=== PATIENT | male | born 1970 | race Caucasian/White ===

== ENCOUNTER 2017-09-14 12:55 | Inpatient (IN) | payer OTHER ==
[2017-09-14] VITALS (12 sets, daily range): BP systolic 99–159; BP diastolic 48–89; PULSE 92–105; RESP 11–22; TEMP 97–99.9; O2SAT 90–100
--- NOTE | 2017-09-14 15:14 | RADRPT ---
EXAM DATE/TIME: 09/14/2017 15:03 [facility] COMPARISON: No previous studies available for comparison. INDICATIONS : Organ donor. MEDICAL HISTORY : None. SURGICAL HISTORY : None. ENCOUNTER: Initial ACUITY: 1 day PAIN SCORE: Non-responsive. LOCATION: Bilateral chest FINDINGS: ETT is at the level of the clavicles. NGT in the stomach. Right subclavian central line with tip in t he central SVC. There is a right-sided chest tube in place. Trace right-sided pneumothorax. Mild airs pace disease in the left lower lung zone. Multiple right-sided rib fractures. CONCLUSION: 1. Tubes and lines, as above. 2. Right-sided chest tube in place with trace right pneumothorax. 3. Mild airspace disease in the left lower lung zone consistent with atelectasis or pulmonary contusi on. Marty Leal MD on September 14, 2017 at 15:11 Board Certified Radiologist. This report was verified electronically.
[2017-09-14 15:28] LABS: BLOOD, URINE NEG (NEG); GLUCOSE,URINE NEG (NEG); KETONE, URINE NEG (NEG); MUCUS URINE FEW /lpf (OCC); NITRITE,URINE NEG (NEG); PH, URINE 5.5 (5.0-8.5); SQUAMOUS EPITHELIAL CELL URINE <1 /hpf (0-5); URINE COLOR YELLOW (YELLW/STRAW)
[2017-09-14 15:39] LABS: AUTOMATED NEUTROPHIL # 7.6 TH/MM3 (1.8-7.7); BASOPHIL % 0.4 % (0.0-2.0); EOSINOPHIL # 0.1 TH/MM3 (0-0.4); EOSINOPHIL % 0.8 % (0.0-4.0); LYMPH % 15.3 % (9.0-44.0); LYMPHOCYTE # 1.5 TH/MM3 (1.0-4.8); MEAN CELL VOLUME 86.7 FL (80.0-100.0); MEAN CORPUSCULAR HEMOGLOBIN 29.7 PG (27.0-34.0); MEAN CORPUSCULAR HGB CONC 34.3 % (32.0-36.0); MONO % 5.2 % (0.0-8.0); NEUT % 78.3 % (16.0-70.0); PLATELET COUNT 75 TH/MM3 (150-450); RED BLOOD COUNT 2.31 MIL/MM3 (4.50-5.90); RED CELL DISTRIBUTION WIDTH 14.9 % (11.6-17.2); WHITE BLOOD COUNT 9.7 TH/MM3 (4.0-11.0)
[2017-09-14 15:48] LABS: AMYLASE 25 U/L (25-115); ANION GAP 8 MEQ/L (5-15); AST (GOT) 86 U/L (15-37); BICARBONATE 25.2 MEQ/L (21.0-32.0); BLOOD UREA NITROGEN 14 MG/DL (7-18); CHLORIDE 122 MEQ/L (98-107); GAMMA GT 81 U/L (15-85); GLOMERULAR FILTRATION RATE 143 ML/MIN (>89); HEMO FLAGS AUTO DIFF; MAGNESIUM 2.2 MG/DL (1.5-2.5); POTASSIUM 3.2 MEQ/L (3.5-5.1); SODIUM (NA) 155 MEQ/L (136-145)
--- NOTE | 2017-09-14 15:49 | PD.PROCEDR ---
Procedure Note Procedure Procedure: Diagnostic Fiberoptic Bronchoscopy Diagnosis: Traumatic brain injury with herniation Indications: Need for perioperative planning for possible organ donation Consent: Obtained Anesthesia: none Description of the Procedure: The patient was mechanically ventilated. The patient was placed on 100% FIO2 and a volume control mode of ventilation. The fiberoptic bronchoscopy was inserted via 7.5 oral endotracheal tube. The trachea, right and left mainstem bronchi, and sub-segmental bronchi were evaluated. The endobronchial anatomy was normal. Findings: Minimal thick hdz secretions in the proximal left or right airways which clear easily upon suctioning. Normal anatomy. No lesions. No trauma. BAL samples: Right lower lobe, left lower lobe The patient tolerated the procedure well with no hemodynamic instability or hypoxia. There were no immediate complications noted. At the conclusion of the procedure, the patient was placed back on their pre-procedure ventilatory settings. There was minimal EBL. I personally performed the procedure. Everton Patel MD Sep 14, 2017 15:49
[2017-09-14] MEDS: 0.0225% SODIUM CHLORIDE, POTASSIUM CHLORIDE 20 MEQ IV SCH ×3 (15:50)
[2017-09-14] MEDS: CLINDAMYCIN INJ 900 MG in SODIUM CHLORIDE 0.9% INJ 50 ML IV SCH ×2 (15:50→21:07)
[2017-09-14 15:51] LABS: ALKALINE PHOSPHATASE 64 U/L (45-117); ALT (GPT) 41 U/L (12-78); CREATINE KINASE 527 U/L (39-308); INDIRECT BILIRUBIN 0.1 MG/DL (0.0-0.8); TOTAL BILIRUBIN ADULT 0.3 MG/DL (0.2-1.0)
[2017-09-14] MEDS ORDERED: RESP: ACETYLCYSTEINE 20% 30 ML NEB NEB SCH (16:00)
[2017-09-14] MEDS ORDERED: ICU - D/C ICU ELECTROLYTE ORDERS PRN (16:00)
[2017-09-14] MEDS ORDERED: methylPREDNISolone SO SUCC INJ 2,000 MG in SODIUM CHLOR 0.9% 250 ML INJ 250 ML IV ONE (16:00)
[2017-09-14] MEDS ORDERED: LEVOTHYROXINE SODIUM 100 MCG VIAL IV PUSH ONE (16:00)
[2017-09-14] MEDS ORDERED: ICU - POTASSIUM CHLORIDE/AQUEOUS SOLN 40 MEQ/100 ML IVPB IV PRN (16:00)
[2017-09-14] MEDS ORDERED: POTASSIUM CHLORIDE 25 MEQ EFFERVESCENT TAB PO PRN (16:00)
[2017-09-14] MEDS ORDERED: ICU - MAGNESIUM SULFATE 2 GM/NS 100 ML IV PRN ×2 (16:00)
[2017-09-14] MEDS ORDERED: DEXTROSE 50% IN WATER 50 ML VIAL(D50) IV PUSH SCH (16:00)
[2017-09-14] MEDS ORDERED: LEVOTHYROXINE 400 MCG/NS 500 ML IV SCH ×2 (16:00)
[2017-09-14] MEDS ORDERED: ICU - SODIUM PHOSPHATE 30 MMOL/NS 250 ML IV PRN ×2 (16:00)
[2017-09-14] MEDS ORDERED: ICU - MAGNESIUM OXIDE 400 MG TAB PO PRN (16:00)
[2017-09-14] MEDS ORDERED: DOPamine INJ 400 MG in SODIUM CHLOR 0.9% 250 ML INJ 250 ML IV PRN (16:00)
[2017-09-14] MEDS ORDERED: VASOPRESSIN 80 U/NS 100 ML Titrate per Translife Protocol IV PRN ×2 (16:00)
[2017-09-14] MEDS ORDERED: ICU - MAGNESIUM SULFATE 4 GM/NS 100 ML IV PRN ×2 (16:00)
[2017-09-14] MEDS ORDERED: INSULIN HUMAN REGULAR 1,000 UNITS/10 ML VIAL IV PUSH SCH (16:00)
[2017-09-14] MEDS ORDERED: ICU - POTASSIUM PHOSPHATE MONOBASIC 500 MG TAB PO PRN (16:00)
[2017-09-14] MEDS ORDERED: [UNRECOGNIZED DRUG - OTHER] OG-TUBE PRN (16:00)
[2017-09-14] MEDS ORDERED: ICU - POTASSIUM PHOSPHATE 30 MMOL/NS 250 ML IV PRN ×2 (16:00)
[2017-09-14] MEDS ORDERED: ICU - CALL ORDERING PHYSICIAN PRN (16:00)
[2017-09-14 16:05] LABS: CKMB 6.6 NG/ML (0.5-3.6)
[2017-09-14] MEDS: RESP: ALBUTEROL 2.5 MG/3 ML NEB (SCH) NEB (16:08)
[2017-09-14] MEDS: RESP: ACETYLCYSTEINE 20% 4 ML NEB NEB SCH (16:09)
[2017-09-14 16:11] LABS: PLATELET ESTIMATE SMEAR LOW (NORMAL); PLATELET MORPHOLOGY NORMAL (NORMAL); SCAN/DIFF AUTO DIFF CONFIRMED
[2017-09-14 16:18] LABS: APTT (PATIENT) 24.8 SEC (24.3-30.1); INTERNATIONAL NORMALIZED RATIO 0.9 RATIO; PROTHROMBIN TIME - PATIENT 10.1 SEC (9.8-11.6)
[2017-09-14 16:21] LABS: BLOOD GAS BASE EXCESS -0.1 mmol/L (-2-2); BLOOD GAS CARBOXYHEMOGLOBIN 1.2 % (0-4); BLOOD GAS HCO3 24 mmol/L (22-26); BLOOD GAS METHEMOGLOBIN 0.8 % (0-2); BLOOD GAS O2 HGB SATURATION 98 % (90-100); BLOOD GAS OXYGEN CONTENT 9.3 Vol % (12.0-20.0); BLOOD GAS PCO2 42 mmHg (38-42); BLOOD GAS PO2 235 mmHG (61-120); BLOOD GAS TOTAL HGB 6.3 G/DL (12.0-16.0); CRITICAL VALUE YES; DRAW SITE ART LINE; FIO2 100 %; NUMBER OF ARTERIAL PUNCTURES 0; OXYGEN DEVICE VENTILATOR; STAT YES; TEMP CORR TO 98.6; ULNAR PULSE PRESENT; VENT SETTINGS PRVC/22/550/1.0/+8
[2017-09-14 16:28] LABS: HEMOGLOBIN A1a 1.7 %; HEMOGLOBIN A1b 0.8 %; HEMOGLOBIN Ao 85.5 %; HEMOGLOBIN F 0.8 %; HEMOGLOBIN LA1C 2.1 %; HEMOGLOBIN P3 3.6 %
[2017-09-14] MEDS: CEFEPIME 1000 MG/NS 100 ML IV SCH ×4 (16:44→22:05)
--- NOTE | 2017-09-14 17:03 | ECHRPT ---
Indication: REGARDING SUITIBILITY FOR HEART DONATION CONCLUSIONS The left ventricular systolic function is normal with an estimated ejection fraction in the range of 55-60%. Trace mitral valve regurgitation. There is trace tricuspid valve regurgitation. BP: 112 / 55 HR: Rhythm: Sinus MEASUREMENTS (Male / Female) Normal Values Technical Quality:Fair 2D ECHO LV Diastolic Diameter PLAX 5.0 cm 4.2 - 5.9 / 3.9 - 5.3 cm LV Systolic Diameter PLAX 3.5 cm IVS Diastolic Thickness 0.8 cm 0.6 - 1.0 / 0.6 - 0.9 cm LVPW Diastolic Thickness 0.7 cm 0.6 - 1.0 / 0.6 - 0.9 cm LV Relative Wall Thickness 0.3 LVOT Diameter 1.6 cm Aortic Root Diameter 2.1 cm LA Systolic Diameter LX 2.4 cm 3.0 - 4.0 / 2.7 - 3.8 cm DOPPLER AV Peak Velocity 145.0 cm/s AV Peak Gradient 8.4 mmHg AV Mean Gradient 5.0 mmHg AV Velocity Time Integral 17.1 cm LVOT Peak Velocity 120.0 cm/s LVOT Peak Gradient 5.8 mmHg LVOT Velocity Time Integral 17.2 cm AV Area Cont Eq vti 2.0 cm AV Area Cont Eq pk 1.7 cm Mitral E Point Velocity 82.9 cm/s Mitral A Point Velocity 79.0 cm/s Mitral E to A Ratio 1.0 LV E' Lateral Velocity 8.2 cm/s Mitral E to LV E' Lateral Ratio 10.1 LV E' Septal Velocity 9.8 cm/s Mitral E to LV E' Septal Ratio 8.4 PV Peak Velocity 66.2 cm/s PV Peak Gradient 1.8 mmHg FINDINGS LEFT VENTRICLE Normal left ventricular size. Wall thickness is normal. The left ventricular systolic function is normal with an estimated ejection fraction in the range of 55-60%. Probably normal diastolic function. RIGHT VENTRICLE The right ventricular size is normal. LEFT ATRIUM The left atrial size is normal. RIGHT ATRIUM The right atrial size is normal. ATRIAL SEPTUM Normal atrial septal thickness. AORTA The aortic root and proximal ascending aorta are normal in size on limited imaging. MITRAL VALVE Trace mitral valve regurgitation. Structurally normal mitral valve. No mitral valve stenosis. AORTIC VALVE Trileaflet aortic valve. No aortic valve stenosis or regurgitation. TRICUSPID VALVE There is trace tricuspid valve regurgitation. Structurally normal tricuspid valve. No tricuspid valve stenosis. PULMONARY VALVE The pulmonary valve is not well visualized. PERICARDIUM No pericardial effusion. Dakota Guerra DO (Electronically Signed) Final Date:14 September 2017 17:02
--- NOTE | 2017-09-14 18:38 | CATHPROC ---
[facility] Report Study Information Study Number Admission Scheduled Start Study Start [id number] Sep 14 2017 12:55PM 09/14/2017 Sep 14 2017 5:21PM [facility] Cardiac Catheterization Admit Source Facility Department Emergency department [facility]ck Cutter Physician and Clinical Staff Initial Dakota Cabrera Veterinarian Gabriel Villagomez RN Veterinarian Susan Dorman BSN Recorder Alexandra, Paola,RT(R) (BS) Scrub Nona Cramer,EPIC PROFESSIONAL TECH2 Procedures Performed Procedure Location (Site) Vessel Name Coronary Angiograms LCA Left Coronary Coronary Angiograms RCA Right Coronary Equipment Time Flipping Machine Operator Description Size Mfg Part Number Used/Scraped [id number] 17:31 [employer] SWAN GHAZALA CATHETER FR 7 Used *[id number] TRANSDUCER, TRUWAVE [id number] 17:31 [employer] * Used W/STOCKCOCK *[id number] TRANSDUCER, TRUWAVE [id number] 17:31 LYON DE [place] [employer] * Used W/STOCKCOCK *[id number] INTRODUCER SET, 17:49 [employer] FR 5 [id number] *[id number] Used MICROPUNCTURE, STIFFENED [id number] *[id number] 17:31 [employer] IND[employer]RIES PACK, CCL CUSTOM * Used *[id number] 18:06 MEDTRONIC JL 4.0 DXTERITY CATHETER FR 5 [id number] Used 18:02 MEDTR[employer]IC JR 4.0 DXTERITY CATHETER FR 5 [id number] Used 17:31 [employer] MEDICAL SHEATH, FR5.5 PRELUDE 11CM FR 5 [id number] Used [id number] 17:31 [employer] MEDICAL WIRE, 3MMJ .035 180CM 180CM Used *[id number] 17:31 NAMIC MANIFOLD, 2 PORT * Used *[id number] 17:31 NAMIC MANIFOLD, 4 PORT * Used *[id number] 17:31 [employer]ED OMNIPAQUE, 350 MG, 150ML 150ML [id number] Used [id number] 17:31 [employer] MEDICAL BLANKET,WARM AIR CCL * Used *[id number] 17:31 TERUMO MEDICAL SHEATH, FR7 TERUMO (10CM) FR 7 Used *[id number] History: Allergies Allergy Reaction No Allergy Information Available No Known Allergies History: Risk Factors Family History of Hypertension Dyslipidemia Previous TN Previous Heart Failure Premature CAD No No No No No Prior Valve Prior PCI Prior CABG Surgery No No No Cerebrovascular Peripheral Artery Chronic Lung On Dialysis Diabetes Disease Disease Disease No No No No No History: Stress Tests Stress or Imaging Studies Performed No History: Other Current Smoker No Labs Hgb (g/dl) 11.60-17.00 6.9 BUN (mg/dl) Creatinine (mg/dl) BUN:Creatinine (1:x) 7.00-18.00 0.50-1.30 10.00-20.00 13 0.7 18.6 CPK-MB (ng/ML) 0.50-3.60 Not Drawn Initial Case Assessment Cardiovascular HR Rhythm NIBP 102 reg 130/82 Edema Present Skin color Skin Mild Normal Warm Dry Circulatory - Right Pulses Dorsalis Pedis Femoral 2 2 Scale (0,1,2,3,4,d) Circulatory - Left Pulses Dorsalis Pedis Femoral 2 2 Scale (0,1,2,3,4,d) Circulatory - Lower Extremities Color Lower Right Color Lower Left Normal Normal Neurological State Unresponsive Respiration - General Respiration Rate SpO2 (%) (B/min) 22 97 Respiration - Ventilator Type Intubation Type ET(oral) Respiration - Ventilator Settings TV (ml) FIO2 (%) PEEP (cm/H2O) 550 100 5 Chronological Log Time Study Chronological Log 17:21:30 Patient arrived via Bed. 17:21:31 Patient Name, D.O.B, / Armband Verified By R.N. Verbal Stimulation=0 Physical Stimulation=0 Airway=1 Respiration=1 TOTAL=2. (0=absent, 1=limite d, 2=present) pt 17:21:40 has been declared brain . 17:21:44 Presedation assessment performed by Neck Cutter RN. 17:21:47 Patient has been NPO for More than 6Hrs. 17:22:00 History and physical on the chart or being dictated. Assessment: Initial Case, OT=334 BPM, Rhythm=reg, QEEE=826/82 mmhg, Edema=Mild, Color=Normal, S kin = Warm, Dry Right Pulses: Law Ped=2, Femoral=2 Left Pulses: Law Ped=2, Femoral=2 17:22:02 Pt has been declaired brain Lower Right Extremities: Color=Normal Lower Left Extremities: Color=Normal Neurological: State=Unresponsive Respiration: Resp=22 B/min, SpO2=97 %, Type=ET(Oral), WQ=421 mL, KWS9=477 %, PEEP=5 cm/H2O Vitals capture started with the following parameters, Patient=Adult, Interval=5 min, Initial Pr giiidg=483 mmHg, 17:33:08 Deflation Rate=5 mmHg, Cuff placed on Left Arm 17:33:42 UQ=960 bpm, QFST=366/82 mmhg, SpO2=97.0 %, Resp=14 B/min, Christina=4, =6, Comment=Pt i s brain 17:35:20 Reference ECG taken NR=155 bpm, YXVI=252/87 mmhg, SpO2=96.0 %, Resp=22 B/min, Christina=5, =6, Comment=Pt has b een 17:38:41 declaired brain 17:40:12 Pressure channel 1 zeroed. 17:43:42 VM=474 bpm, UKMI=035/84 mmhg, SpO2=99.0 %, Resp=0 B/min, Christina=5, =6, Comment=Pt is brain Time Out. Correct patient, correct procedure, correct physician, power injector not loaded with contrast with surgical 17:45:50 team present. Time Out Concurred by MD and individual staff in procedure. 17:46:18 Case Start 17:48:07 Access site was Right Femoral Artery. A INTRODUCER SET, MICROPUNCTURE, STIFFENED FR 5 was advanced into the Fem Art (right) using the 17:48:18 Percutaneous technique. A SHEATH, FR5.5 PRELUDE 11CM FR 5 was exchanged in the Fem Art (right). This was necessary in o rder to 17:48:37 accomodate a larger catheter. 17:48:43 IY=879 bpm, JOPL=921/87 mmhg, SpO2=96.0 %, Resp=25 B/min, Christina=5, =6, Comment=Pt i s brain 17:50:52 Access site was Right Femoral Vein. A INTRODUCER SET, MICROPUNCTURE, STIFFENED FR 5 was advanced into the Fem Vein (right) using th e 17:50:58 Percutaneous technique. A SHEATH, FR7 TERUMO (10CM) FR 7 was exchanged in the Fem Vein (right). This was necessary in o rder to 17:51:17 accomodate a larger catheter. 17:52:28 An injection in the Fem Art (right) was made through the SHEATH, FR5.5 PRELUDE 11CM FR 5. 17:53:25 A SWAN GHAZALA CATHETER FR 7 was inserted via Fem Vein (right) 17:53:42 HR=99 bpm, GWZN=475/92 mmhg, Resp=0 B/min, Christina=5, =6, Comment=Pt is brain Recorded Pressure: PCW, HR=99, Condition=Condition 1 17:56:14 (Pulmonary Capillary Wedge) PCW /19 17:58:20 Saturation: Site=PA (Pulmonary Artery) , O2=71.4 %, Hgb=6.9 gm/dl, Condition=Condition 1. U sed in calculation. 17:58:45 HR=99 bpm, QFNQ=841/87 mmhg, SpO2=97.0 %, Resp=0 B/min, Christina=5, =6, Comment=Pt is brain 17:58:45 Saturation: Site=Ao (Aorta) , O2=94.7 %, Hgb=6.9 gm/dl, Condition=Condition 1. Used in calc ulation. Recorded Pressure: MPA, WC=231, Condition=Condition 1 17:59:05 (Main Pulmonary Artery) MPA 41/23/31 Recorded Pressure: RV, HR=99, Condition=Condition 1 17:59:47 (Right Ventricle) RV 45/12/19 Recorded Pressure: RA, HR=99, Condition=Condition 1 18:00:15 (Right Atrium) RA 1818/15 18:00:24 [place] Ghazala Catheter Removed A JR 4.0 DXTERITY CATHETER FR 5 was advanced over a wire. OMNIPAQUE, 350 MG, 150ML 150ML was us ed for 18:01:43 injections. Recorded Pressure: Ao, HR=98, Condition=Condition 1 18:03:01 (Aorta) Ao 122/79/100 18:03:29 The RCA was injected and visualized at various angles. OMNIPAQUE, 350 MG, 150ML 150ML used . 18:03:44 HR=97 bpm, PDTT=111/86 mmhg, SpO2=95.0 %, Resp=1 B/min, Christina=5, =6, Comment=Pt is brain 18:04:33 Catheter was removed After removing the current catheter a JL 4.0 DXTERITY CATHETER FR 5 was advanced over a WIRE, 3MMJ .035 180CM 18:04:48 180CM. 18:06:10 The LCA was injected and visualized at various angles. OMNIPAQUE, 350 MG, 150ML 150ML use d. 18:08:43 HR=97 bpm, KGRK=167/90 mmhg, Resp=4 B/min, Christina=5, =6, Comment=Pt is brain After removing the current catheter a PIGTAIL STR. INFINITI CATHETER FR 5 was advanced over a WIRE, 3MMJ .035 18:08:55 180CM 180CM. Recorded Pressure: LV, HR=90, Condition=Condition 1 18:10:58 (Left Ventricle) LV 122/19/25 Recorded Pressure: LV, Ao, HR=99, Condition=Condition 1 18:11:16 (Left Ventricle) LV 124/20/26, (Aorta) Ao 120/78/98 18:12:20 Catheter was removed 18:13:44 HR=97 bpm, RUYU=741/94 mmhg, SpO2=95.0 %, Resp=0 B/min, Christina=5, =6, Comment=Pt is brain 18:15:31 Case End 18:15:39 Catheter(s) removed without difficulty 18:15:42 In the Fem Art (right) the SHEATH, FR5.5 PRELUDE 11CM FR [address] by Nona Cramer, EPIC PROFESSIONAL TECH2. 18:15:49 In the Fem Vein (right) the SHEATH, FR7 TERUMO (10CM) FR [address] by Nona Cramer, EPIC PROFESSIONAL TECH2. 18:15:57 No case complications noted. 18:16:00 Bedside Report will be given. 18:16:08 A Left and Right Heart Cath was performed. 18:16:58 Sterile dressing applied to site 18:18:47 HR=97 bpm, ZFHR=215/96 mmhg, SpO2=95.0 %, Resp=0 B/min, Christina=5, =6, Comment=Pt is brain 18:19:32 CT called. 18:23:24 Vitals capture stopped. 18:28:42 Patient moved to stretcher End Study - Contrast Media Used In Study Contrast Total Opened (mL) Total Used (mL) Total Wasted (mL) Omnipaque 40 40 0 End Study - Maximum Contrast Load Max Contrast Load (mL) 687.0 End Study - Radiation Exposure Fluoro Time (minutes) 3.9 End Study - Patient Disposition Complications Transferred To Interventional Outcome No Critical Care Bed No attempt made
[2017-09-14] MEDS ORDERED: IOHEXOL 350 MG/ML 10 ML VIAL (for RAD DIAG) IVCONTRAST ONE (19:53)
[2017-09-14] MEDS: FUROSEMIDE 20 MG/2 ML VIAL IV PUSH PRN ×3 (20:09→21:27)
--- NOTE | 2017-09-14 20:58 | RADRPT ---
EXAM DATE/TIME: 09/14/2017 18:44 [facility] COMPARISON: No previous studies available for comparison. INDICATIONS : Organ donor IV CONTRAST: 80 cc Omnipaque 350 (iohexol) IV ; Cumulative dose for multiple exams. ORAL CONTRAST: No oral contrast ingested. RADIATION DOSE: 5.73 CTDIvol (mGy) ; Combined studies - Thorax/Abdomen/Pelvis MEDICAL HISTORY : Non-responsive. SURGICAL HISTORY : Non-responsive. ENCOUNTER: Initial ACUITY: 1 day PAIN SCALE: Non-responsive LOCATION: Abdomen TECHNIQUE: Volumetric scanning of the abdomen and pelvis was performed. Using automated exposure control and ad justment of the mA and/or kV according to patient size, radiation dose was kept as low as reasonably achievable to obtain optimal diagnostic quality images. DICOM format image data is available electro nically for review and comparison. FINDINGS: LOWER LUNGS: See the CT of the thorax dictated separately. LIVER: There is a liver laceration involving the right posterior lateral lobe. This extends approximately 3 cm deep into the parenchyma. It does not reach the level of the hilum. No active extravasation of con trast is seen to suggest active bleeding. SPLEEN: Normal size without lesion. PANCREAS: Within normal limits. KIDNEYS: Normal in size and shape. There is no mass, stone or hydronephrosis. ADRENAL GLANDS: Within normal limits. VASCULAR: There is no aortic aneurysm. A right groin venous catheter and arterial line observed. BOWEL/MESENTERY: The stomach, small bowel, and colon demonstrate no acute abnormality. There is no free intraperitone al air or fluid. ABDOMINAL WALL: Within normal limits. RETROPERITONEUM: There is no lymphadenopathy. BLADDER: Decompressed and contains a Yadav. REPRODUCTIVE: Within normal limits. INGUINAL: There is no lymphadenopathy or hernia. MUSCULOSKELETAL: Several lower right sided rib fractures with overlying soft tissue swelling and subcutaneous air. CONCLUSION: 1. Liver laceration without active hemorrhage or significant hemoperitoneum. 2. See the CT of the thorax dictated separately. 3. Right-sided rib fractures. Naun Hahn Jr., MD on September 14, 2017 at 20:10 Board Certified Radiologist. This report was verified electronically.
--- NOTE | 2017-09-14 22:51 | RADRPT ---
EXAM DATE/TIME: 09/14/2017 18:47 [facility] COMPARISON: No previous studies available for comparison. INDICATIONS : Organ donor IV CONTRAST: 80 cc Omnipaque 350 (iohexol) IV ; Cumulative dose for multiple exams. RADIATION DOSE: 5.73 CTDIvol (mGy) ; Combined studies - Thorax/Abdomen/Pelvis MEDICAL HISTORY : Non-responsive. SURGICAL HISTORY : Non-responsive. ENCOUNTER: Initial ACUITY: 1 day PAIN SCALE: Non-responsive LOCATION: chest TECHNIQUE: Volumetric scanning of the chest was performed. Using automated exposure control and adjustment of t he mA and/or kV according to patient size, radiation dose was kept as low as reasonably achievable to obtain optimal diagnostic quality images. DICOM format image data is available electronically for review and comparison. Follow-up recommendations for detected pulmonary nodules are based at a minimum on nodule size and pa tient risk factors according to Fleischner Society Guidelines. FINDINGS: There are prominent confluent areas of consolidation involving the mid and lower lungs bilaterally, m ultisegmental, with multiple air bronchograms. Right-sided chest drainage tube tip projects in the p osterior upper chest. There is a right-sided pneumothorax with AP dimension 1 cm. There is a pulmon shannan cyst in the right lower lung measuring 5.9 cm. Subcutaneous emphysema about the right chest wall . Multiple right rib fractures including a longitudinal fracture of the 1st rib, and transverse frac tures of the lateral 3rd through 11th ribs. Endotracheal tube tip is well above the shawna. Gastric tube tip is coiled in the stomach. Right ce ntral line tip projects over the distal superior vena cava. No evidence of mediastinal or axillary a denopathy. CONCLUSION: Multiple right rib fractures, small right pneumothorax, bilateral multisegmental consolidation. Righ t chest drainage tube in place. Naun Mckenzie MD on September 14, 2017 at 22:46 Board Certified Radiologist. This report was verified electronically.
[2017-09-14] MEDS: methylPREDNISolone SOD SUCC 1000 MG/16 ML VIAL IV SCH (23:29)
[2017-09-14 23:31] LABS: AUTOMATED NEUTROPHIL # 10.8 TH/MM3 (1.8-7.7); BASOPHIL % 0.3 % (0.0-2.0); HEMATOCRIT 31.8 % (39.0-51.0); LYMPH % 2.2 % (9.0-44.0); LYMPHOCYTE # 0.3 TH/MM3 (1.0-4.8); MEAN CELL VOLUME 86.3 FL (80.0-100.0); MEAN CORPUSCULAR HEMOGLOBIN 29.6 PG (27.0-34.0); MEAN CORPUSCULAR HGB CONC 34.4 % (32.0-36.0); MONO % 3.3 % (0.0-8.0); NEUT % 94.2 % (16.0-70.0); PLATELET COUNT 73 TH/MM3 (150-450); RED BLOOD COUNT 3.69 MIL/MM3 (4.50-5.90); RED CELL DISTRIBUTION WIDTH 14.6 % (11.6-17.2); WHITE BLOOD COUNT 11.5 TH/MM3 (4.0-11.0)
[2017-09-14 23:33] LABS: HEMO FLAGS AUTO DIFF
[2017-09-14] MEDS ORDERED: POTASSIUM CHLOR 20 MEQ PREMIX 100 ML IV ONE (23:45)
[2017-09-15] VITALS (19 sets, daily range): BP systolic 100–156; BP diastolic 50–90; PULSE 95–116; RESP 12–22; TEMP 98.1–99.7; O2SAT 93–99
[2017-09-15 00:01] LABS: ALKALINE PHOSPHATASE 99 U/L (45-117); ALT (GPT) 55 U/L (12-78); ANION GAP 10 MEQ/L (5-15); AST (GOT) 130 U/L (15-37); BICARBONATE 27.3 MEQ/L (21.0-32.0); BLOOD UREA NITROGEN 13 MG/DL (7-18); CHLORIDE 113 MEQ/L (98-107); GLOMERULAR FILTRATION RATE 97 ML/MIN (>89); POTASSIUM 3.7 MEQ/L (3.5-5.1); SODIUM (NA) 150 MEQ/L (136-145); TOTAL BILIRUBIN ADULT 1.7 MG/DL (0.2-1.0)
[2017-09-15 00:08] LABS: BANDS 34 % (0-6); METAMYELOCYTES 23 % (0-1); MYELOCYTES 2 % (0-0); PLATELET ESTIMATE SMEAR LOW (NORMAL); PLATELET MORPHOLOGY NORMAL (NORMAL); POLYS (SEG NEUTROPHILS) 37 % (16-70); SCAN/DIFF FINAL DIFF MANUAL; WBC DIFF SAMPLE 100
[2017-09-15 00:09] LABS: DOHLE BODIES PRESENT (NONE SEEN); TOXIC VACUOLATION PRESENT (NONE SEEN)
--- NOTE | 2017-09-15 00:09 | RADRPT ---
EXAM DATE/TIME: 09/14/2017 23:46 [facility] COMPARISON: No previous studies available for comparison. INDICATIONS : Organ donor. MEDICAL HISTORY : None. SURGICAL HISTORY : None. ENCOUNTER: Initial ACUITY: 1 day PAIN SCORE: Non-responsive. LOCATION: Bilateral chest FINDINGS: Right rib fractures with a chest tube again noted. No perceptible pneumothorax. Mild right chest wall emphysema again noted. Mild patchy consolidation of both bases, left slightly more so than right. Patient is intubated. Endotracheal tube tip is approximately 19 mm above the shawna. Nasogastric tube courses into the stomach. There is a right subclavian central venous catheter with tip in the superi or vena cava. CONCLUSION: 1. No perceptible pneumothorax. Right chest tube remains in place. 2. Patchy bibasilar airspace consolidation persists. 3. Lines and tubes as above. Endotracheal tube tip is 1.9 cm above the shawna. Matt Brown MD on September 15, 2017 at 0:05 Board Certified Radiologist. This report was verified electronically.
[2017-09-15] MEDS: 0.0225% SODIUM CHLORIDE, POTASSIUM CHLORIDE 20 MEQ IV SCH ×6 (02:11→14:07)
[2017-09-15] MEDS: CLINDAMYCIN INJ 900 MG in SODIUM CHLORIDE 0.9% INJ 50 ML IV SCH ×2 (03:13→10:46)
[2017-09-15] MEDS ORDERED: FUROSEMIDE 20 MG/2 ML VIAL IV PUSH ONE (03:15)
[2017-09-15] MEDS: CEFEPIME 1000 MG/NS 100 ML IV SCH ×4 (04:25→09:27)
--- NOTE | 2017-09-15 04:59 | RADRPT ---
EXAM DATE/TIME: 09/15/2017 04:08 [facility] COMPARISON: No previous studies available for comparison. INDICATIONS : Organ donor. MEDICAL HISTORY : None. SURGICAL HISTORY : None. ENCOUNTER: Subsequent ACUITY: 2 days PAIN SCORE: Non-responsive. LOCATION: Bilateral chest FINDINGS: Mild patchy parenchymal opacities are again seen of both lungs, mostly the left base. No large effusi on seen. No perceptible pneumothorax. Right chest tube remains in place. There are right rib fracture s again noted and right-sided chest wall emphysema. Endotracheal tube tip is approximately 3 cm above the shawna. Nasogastric tube courses into the stoma ch. There is a right subclavian central venous catheter with tip in the superior vena cava. CONCLUSION: 1. Appropriately positioned endotracheal tube, now about 3 cm above the shawna. 2. Other lines and tubes unchanged, including a right chest tube. No perceptible pneumothorax. 3. Patchy airspace opacities of both lungs, mostly left base and not significantly changed. 4. Multiple right rib fractures are again seen. Matt Brown MD on September 15, 2017 at 4:57 Board Certified Radiologist. This report was verified electronically.
[2017-09-15 05:05] LABS: AUTOMATED NEUTROPHIL # 12.6 TH/MM3 (1.8-7.7); BASOPHIL % 0.2 % (0.0-2.0); HEMATOCRIT 31.1 % (39.0-51.0); LYMPH % 3.3 % (9.0-44.0); LYMPHOCYTE # 0.4 TH/MM3 (1.0-4.8); MEAN CELL VOLUME 85.2 FL (80.0-100.0); MEAN CORPUSCULAR HEMOGLOBIN 29.8 PG (27.0-34.0); MONO % 2.8 % (0.0-8.0); NEUT % 93.7 % (16.0-70.0); PLATELET COUNT 71 TH/MM3 (150-450); RED BLOOD COUNT 3.65 MIL/MM3 (4.50-5.90); RED CELL DISTRIBUTION WIDTH 14.9 % (11.6-17.2); WHITE BLOOD COUNT 13.5 TH/MM3 (4.0-11.0)
[2017-09-15 05:11] LABS: APTT (PATIENT) 27.1 SEC (24.3-30.1); INTERNATIONAL NORMALIZED RATIO 0.9 RATIO; PROTHROMBIN TIME - PATIENT 10.1 SEC (9.8-11.6)
[2017-09-15 05:17] LABS: HEMO FLAGS AUTO DIFF
[2017-09-15 05:34] LABS: ALKALINE PHOSPHATASE 104 U/L (45-117); ALT (GPT) 53 U/L (12-78); ANION GAP 12 MEQ/L (5-15); AST (GOT) 122 U/L (15-37); BICARBONATE 26.2 MEQ/L (21.0-32.0); BLOOD UREA NITROGEN 16 MG/DL (7-18); CHLORIDE 111 MEQ/L (98-107); GLOMERULAR FILTRATION RATE 95 ML/MIN (>89); POTASSIUM 3.4 MEQ/L (3.5-5.1); SODIUM (NA) 149 MEQ/L (136-145); TOTAL BILIRUBIN ADULT 1.6 MG/DL (0.2-1.0)
[2017-09-15 05:45] LABS: BLOOD GAS BASE EXCESS 0.1 mmol/L (-2-2); BLOOD GAS CARBOXYHEMOGLOBIN 1.4 % (0-4); BLOOD GAS HCO3 24 mmol/L (22-26); BLOOD GAS METHEMOGLOBIN 0.9 % (0-2); BLOOD GAS O2 HGB SATURATION 98 % (90-100); BLOOD GAS OXYGEN CONTENT 15.8 Vol % (12.0-20.0); BLOOD GAS PCO2 34 mmHg (38-42); BLOOD GAS PO2 365 mmHg (61-120); BLOOD GAS TOTAL HGB 10.9 G/DL (12.0-16.0); CRITICAL VALUE YES; OXYGEN DEVICE VENT; TEMP CORR TO 98.6
[2017-09-15 05:46] LABS: DRAW SITE ALINE; FIO2 100 %
[2017-09-15 05:47] LABS: STAT NO
[2017-09-15] MEDS: ICU - POTASSIUM CHLORIDE/AQUEOUS SOLN 20 MEQ/100 ML IVPB IV PRN ×2 (05:53→06:55)
[2017-09-15] MEDS ORDERED: FUROSEMIDE 40 MG/4 ML VIAL IV PUSH ONE ×2 (06:30→13:30)
[2017-09-15 06:56] LABS: BANDS 54 % (0-6); CORRECTED NUCLEATED RBC 2 /100 WBC (0-0); DOHLE BODIES PRESENT (NONE SEEN); METAMYELOCYTES 2 % (0-1); NEUTROPHIL # MANUAL DIFF 12.7 TH/MM3 (1.8-7.7); POLYS (SEG NEUTROPHILS) 38 % (16-70); WBC DIFF SAMPLE 100
--- NOTE | 2017-09-15 06:56 | MA ---
cc: DAKOTA VERMA DO DATE 09/14/2017 PROCEDURE Left heart catheterization, right heart catheterization, coronary angiogram. PREPROCEDURE DIAGNOSIS Brain for possible transplant. POSTPROCEDURE DIAGNOSIS No significant coronary artery disease, mild pulmonary hypertension secondary to elevated left-sided filling pressures. CONTRAST 40 cc FLUOROSCOPY 3.9 minutes ESTIMATED BLOOD LOSS 10 cc PROCEDURAL SUMMARY Figure Donor Organ is a 47-year-old male who has undergone brain protocol and is now being evaluated for transplant. Because of this, I was asked for cardiac catheterization to determine if he has significant coronary artery disease in case his heart could possibly be used for transplant. The patient was brought to the lab and prepped in the usual sterile fashion. The right femoral artery was accessed using a modified Seldinger technique and placement of a 5-Ukrainian sheath. The right femoral vein was accessed using a modified Seldinger technique and placement of a 7-Ukrainian sheath. Both were easily aspirated and flushed. A [place]-Jake catheter was advanced up the IVC to a wedge position. Standard saturations and pressures were taken upon pullback throughout the heart. The [place]-Jake catheter was removed. A JR-4 was advanced over a J-wire to the ascending aorta and across the aortic valve for measurement of left ventricular pressure. During this, the patient was noted to proceed into the bundle-branch block. JR-4 was pulled back across the aortic valve without measurement due to the BBB. JR-4 was then used for selective angiography of the right coronary artery. This was exchanged out for a JL-4 which was used for selective angiography of the left coronary artery system. Because of inability to get his pressures with the JR-4 due to change into a bundle branch block and removal of the catheter quickly, there, a pigtail was then advanced across the aortic valve for measurement of left ventricular pressure. The pigtail was then removed. Sheaths were left in place at the recommendation of the transplant team. The patient left the hemodialysis lab technician stable. At the end of the case , the patient's QRS complex had returned to normal. FINDINGS Left main normal sized vessel with adequate reflux and no significant disease. It trifurcates into an LAD, circumflex and ramus. LAD is a normal-size vessel with no significant disease. It gives off one major diagonal with no significant disease. Ramus was a small to moderate size vessel with no significant disease. Left circumflex is a normal size vessel with no significant disease and gives off one major obtuse marginal. RCA normal-size vessel with no significant disease. It is a dominant vessel by nature with no significant disease measured in the PDA. HEMODYNAMIC RESULTS RA 15 RV 45/12 RVEDP 19 PA 41/23, mean PA 31 Wedge 20 LV LVEDP 26. IMPRESSION 1. Brain for possible transplant. 2. No significant coronary artery disease. 3. Mild pulmonary hypertension (type 2 secondary to elevated left-sided filling pressures). RECOMMENDATIONS 1. The patient appears to have no significant coronary artery disease and mild pulmonary hypertension secondary to elevated left-sided filling pressures. 2. He will be evaluated further by the transplant team for consideration. Thank you for allowing me to see [facility] Donor Organ. If there are any questions, please do not hesitate to call. Dakota Verma DO VGP/DJL /1:33 AM /6:52 AM MTDD
[2017-09-15 06:57] LABS: PLATELET ESTIMATE SMEAR LOW (NORMAL); PLATELET MORPHOLOGY ENLARGED (NORMAL); SCAN/DIFF FINAL DIFF MANUAL
[2017-09-15 07:07] LABS: BLOOD, URINE TRACE (NEG); GLUCOSE,URINE 70 mg/dL (NEG); KETONE, URINE NEG (NEG); MUCUS URINE FEW /lpf (OCC); NITRITE,URINE NEG (NEG); PH, URINE 5.5 (5.0-8.5); URINE COLOR YELLOW (YELLW/STRAW)
[2017-09-15 07:10] LABS: COMMENT (UR) CATH-CULT NOT IND; CULTURE IF INDICATED CATH CULTURE NOT IND
[2017-09-15] MEDS: RESP: ALBUTEROL 2.5 MG/3 ML NEB (SCH) NEB ×2 (07:28→11:09)
[2017-09-15] MEDS: RESP: ACETYLCYSTEINE 20% 4 ML NEB NEB SCH ×2 (07:28→11:09)
[2017-09-15 07:41] LABS: BLOOD GAS BASE EXCESS 1.7 mmol/L (-2-2); BLOOD GAS CARBOXYHEMOGLOBIN 1.3 % (0-4); BLOOD GAS HCO3 25 mmol/L (22-26); BLOOD GAS METHEMOGLOBIN 0.8 % (0-2); BLOOD GAS O2 HGB SATURATION 98 % (90-100); BLOOD GAS OXYGEN CONTENT 15.8 Vol % (12.0-20.0); BLOOD GAS PCO2 37 mmHg (38-42); BLOOD GAS PO2 328 mmHg (61-120); BLOOD GAS TOTAL HGB 10.9 G/DL (12.0-16.0); CRITICAL VALUE NO; DRAW SITE ART LINE; FIO2 100 %; NUMBER OF ARTERIAL PUNCTURES 0; OXYGEN DEVICE VENTILATOR; STAT NO; TEMP CORR TO 98.6; ULNAR PULSE PRESENT; VENT SETTINGS PRVC/16/650/2.0/+5
[2017-09-15] MEDS: methylPREDNISolone SOD SUCC 1000 MG/16 ML VIAL IV SCH (08:10)
[2017-09-15] MEDS ORDERED: IOHEXOL 350 MG/ML 50 ML BTL (for Cath Lab) OTHER ONE (08:27)
[2017-09-15 09:04] LABS: BLOOD GAS BASE EXCESS 1.1 mmol/L (-2-2); BLOOD GAS CARBOXYHEMOGLOBIN 1.5 % (0-4); BLOOD GAS HCO3 25 mmol/L (22-26); BLOOD GAS O2 HGB SATURATION 95 % (90-100); BLOOD GAS OXYGEN CONTENT 14.1 Vol % (12.0-20.0); BLOOD GAS PCO2 37 mmHg (38-42); BLOOD GAS PO2 81 mmHg (61-120); BLOOD GAS TOTAL HGB 10.5 G/DL (12.0-16.0); CRITICAL VALUE YES; TEMP CORR TO 98.6
[2017-09-15 09:05] LABS: OXYGEN DEVICE VENTILATOR
[2017-09-15 09:06] LABS: DRAW SITE ART LINE; FIO2 40 %; NUMBER OF ARTERIAL PUNCTURES 0; STAT NO; ULNAR PULSE PRESENT; VENT SETTINGS PRVC/16/650/2.0/+5
[2017-09-15 09:37] LABS: BLOOD GAS BASE EXCESS -0.9 mmol/L (-2-2); BLOOD GAS CARBOXYHEMOGLOBIN 1.2 % (0-4); BLOOD GAS HCO3 24 mmol/L (22-26); BLOOD GAS METHEMOGLOBIN 0.9 % (0-2); BLOOD GAS O2 HGB SATURATION 98 % (90-100); BLOOD GAS OXYGEN CONTENT 17.5 Vol % (12.0-20.0); BLOOD GAS PCO2 41 mmHg (38-42); BLOOD GAS PO2 313 mmHg (61-120); BLOOD GAS TOTAL HGB 12.2 G/DL (12.0-16.0); CRITICAL VALUE NO; OXYGEN DEVICE VENTILATOR; TEMP CORR TO 98.6
[2017-09-15 09:38] LABS: DRAW SITE ALINE; FIO2 100 %; STAT NO; VENT SETTINGS PRVC
[2017-09-15 09:41] LABS: BLOOD GAS BASE EXCESS -0.8 mmol/L (-2-2); BLOOD GAS CARBOXYHEMOGLOBIN 1.2 % (0-4); BLOOD GAS HCO3 26 mmol/L (22-26); BLOOD GAS O2 HGB SATURATION 98 % (90-100); BLOOD GAS PCO2 72 mmHg (38-42); BLOOD GAS PO2 410 mmHg (61-120); BLOOD GAS TOTAL HGB 10.2 G/DL (12.0-16.0); TEMP CORR TO 98.6
[2017-09-15 09:42] LABS: CRITICAL VALUE YES; DRAW SITE ALINE; LITER FLOW 15 L/M; OXYGEN DEVICE NASAL CANNULA; STAT NO
[2017-09-15 09:44] LABS: BLOOD GAS CARBOXYHEMOGLOBIN 1.5 % (0-4); BLOOD GAS HCO3 24 mmol/L (22-26); BLOOD GAS O2 HGB SATURATION 97 % (90-100); BLOOD GAS OXYGEN CONTENT 15.3 Vol % (12.0-20.0); BLOOD GAS PCO2 38 mmHg (38-42); BLOOD GAS PO2 233 mmHg (61-120); BLOOD GAS TOTAL HGB 10.8 G/DL (12.0-16.0); TEMP CORR TO 98.6
[2017-09-15 09:45] LABS: CRITICAL VALUE NO; OXYGEN DEVICE VENTILATOR
[2017-09-15 09:46] LABS: DRAW SITE ALINE; FIO2 100 %; STAT NO; VENT SETTINGS PRVC
[2017-09-15] MEDS: FUROSEMIDE 20 MG/2 ML VIAL IV PUSH PRN ×2 (09:57→14:05)
--- NOTE | 2017-09-15 09:59 | EKG ---
Date Performed: 09/14/2017 Time Performed: 14:02:08 PTAGE: 47 years EKG: Sinus rhythm . Short MI interval Extensive ST-T changes may be due to myocardial ischemia Abnormal ECG NO PREVIOUS TRACING DOCTOR: aCleb Haynes Interpretating Date/Time 09/15/2017 09:58:16
[2017-09-15 10:13] LABS: BLOOD GAS BASE EXCESS 0.2 mmol/L (-2-2); BLOOD GAS CARBOXYHEMOGLOBIN 1.2 % (0-4); BLOOD GAS HCO3 24 mmol/L (22-26); BLOOD GAS O2 HGB SATURATION 98 % (90-100); BLOOD GAS OXYGEN CONTENT 14.7 Vol % (12.0-20.0); BLOOD GAS PCO2 39 mmHg (38-42); BLOOD GAS PO2 365 mmHg (61-120); CRITICAL VALUE NO; DRAW SITE ART LINE; FIO2 10 %; NUMBER OF ARTERIAL PUNCTURES 0; OXYGEN DEVICE VENTILATOR; STAT NO; TEMP CORR TO 98.6; ULNAR PULSE PRESENT; VENT SETTINGS PRVC/16/650/2.0/+5
--- NOTE | 2017-09-15 10:52 | RADRPT ---
EXAM DATE/TIME: 09/15/2017 10:34 [place] COMPARISON: CHEST SINGLE AP, September 14, 2017, 23:46. CHEST SINGLE AP, September 15, 2017, 4:08. INDICATIONS : Evaluate lung status. MEDICAL HISTORY : None. SURGICAL HISTORY : None. ENCOUNTER: Subsequent ACUITY: 1 day PAIN SCORE: Non-responsive. LOCATION: Bilateral chest FINDINGS: A single view of the chest demonstrates the endotracheal tube, nasogastric tube, right subclavian livia tral line and right-sided chest tube are all in good position. There is no evidence of pneumothorax. Mild consolidation left lung base is unchanged.. The cardiomediastinal contours are unremarkable. O sseous structures are intact. CONCLUSION: Tubes and wires as above. No evidence of pneumothorax although there is significant residual air righ t chest wall. Caleb Hendrickson MD on September 15, 2017 at 10:49 Board Certified Radiologist. This report was verified electronically.
[2017-09-15 11:25] LABS: BLOOD GAS BASE EXCESS 1.5 mmol/L (-2-2); BLOOD GAS CARBOXYHEMOGLOBIN 1.4 % (0-4); BLOOD GAS HCO3 25 mmol/L (22-26); BLOOD GAS O2 HGB SATURATION 94 % (90-100); BLOOD GAS PCO2 39 mmHg (38-42); BLOOD GAS PO2 79 mmHg (61-120); BLOOD GAS TOTAL HGB 10.5 G/DL (12.0-16.0); CRITICAL VALUE NO; OXYGEN DEVICE VENTILATOR; TEMP CORR TO 98.6; VENT SETTINGS PRVC/16/650/2.0/+5
[2017-09-15 11:26] LABS: DRAW SITE ART LINE; FIO2 40 %; NUMBER OF ARTERIAL PUNCTURES 0; STAT NO; ULNAR PULSE PRESENT
[2017-09-15] MEDS ORDERED: INSULIN HUMAN REGULAR 1,000 UNITS/10 ML VIAL IV PUSH ONE (13:30)
[2017-09-15 14:55] LABS: BLOOD UREA NITROGEN 18 MG/DL (7-18); GLOMERULAR FILTRATION RATE 77 ML/MIN (>89)
[2017-09-15 14:56] LABS: ALKALINE PHOSPHATASE 92 U/L (45-117); ALT (GPT) 48 U/L (12-78); ANION GAP 10 MEQ/L (5-15); AST (GOT) 97 U/L (15-37); BICARBONATE 27.3 MEQ/L (21.0-32.0); CHLORIDE 115 MEQ/L (98-107); POTASSIUM 3.2 MEQ/L (3.5-5.1); SODIUM (NA) 152 MEQ/L (136-145)
[2017-09-15 14:57] LABS: BLOOD, URINE NEG (NEG); GLUCOSE,URINE NEG (NEG); HYALINE CAST, URINE 13 /lpf (RARE); KETONE, URINE NEG (NEG); MUCUS URINE FEW /lpf (OCC); NITRITE,URINE NEG (NEG); URINE COLOR YELLOW (YELLW/STRAW)
[2017-09-15 14:58] LABS: BACTERIA, URINE RARE /hpf; RED BLOOD COUNT 3.33 MIL/MM3 (4.50-5.90); WHITE BLOOD COUNT 14.3 TH/MM3 (4.0-11.0)
[2017-09-15 14:59] LABS: BANDS 45 % (0-6); HEMATOCRIT 28.4 % (39.0-51.0); HEMO FLAGS AUTO DIFF; MEAN CELL VOLUME 85.3 FL (80.0-100.0); MEAN CORPUSCULAR HEMOGLOBIN 30.2 PG (27.0-34.0); MEAN CORPUSCULAR HGB CONC 35.4 % (32.0-36.0); METAMYELOCYTES 1 % (0-1); NEUTROPHIL # MANUAL DIFF 13.9 TH/MM3 (1.8-7.7); PLATELET COUNT 72 TH/MM3 (150-450); POLYS (SEG NEUTROPHILS) 51 % (16-70); RED CELL DISTRIBUTION WIDTH 14.7 % (11.6-17.2)
[2017-09-15 15:00] LABS: PLATELET ESTIMATE SMEAR LOW (NORMAL); PLATELET MORPHOLOGY NORMAL (NORMAL); SCAN/DIFF FINAL DIFF MANUAL
[2017-09-15] MEDS ORDERED: NOREPINEPHRINE 4 MG/4 ML AMP ONE (15:36)
[2017-09-15] MEDS ORDERED: VASOPRESSIN 20 UNITS/ML VIAL (IVTITR) ONE (15:36)
[2017-09-15] MEDS ORDERED: VECURONIUM BROMIDE 20 MG VIAL ONE (15:36)
[2017-09-15] MEDS ORDERED: FUROSEMIDE 20 MG/2 ML VIAL ONE (15:36)
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
== END 2017-09-15 17:28 | disposition expired | DRG 939 ==
LOC: N03B 12:55
PROC: B2111ZZ Fluoroscopy of Multiple Coronary Arteries using Low Osmolar Contrast (ICD-10-PCS; principal; 2017-09-14)
PROC: 0B9J8ZX Drainage of Left Lower Lung Lobe, Via Natural or Artificial Opening Endoscopic, Diagnostic (ICD-10-PCS; 2017-09-14)
PROC: 0B9F8ZX Drainage of Right Lower Lung Lobe, Via Natural or Artificial Opening Endoscopic, Diagnostic (ICD-10-PCS; 2017-09-14)
PROC: 4A023N8 Measurement of Cardiac Sampling and Pressure, Bilateral, Percutaneous Approach (ICD-10-PCS; 2017-09-14)
DX: Z52.89 Donor of other specified organs or tissues (principal); G93.5 Compression of brain; J96.90 Respiratory failure, unspecified, unspecified whether with hypoxia or hypercapnia; Z99.11 Dependence on respirator [ventilator] status; S27.329A Contusion of lung, unspecified, initial encounter; D69.6 Thrombocytopenia, unspecified; S06.5X9A Traumatic subdural hemorrhage with loss of consciousness of unspecified duration, initial encounter; E87.0 Hyperosmolality and hypernatremia; I27.22 Pulmonary hypertension due to left heart disease; E66.3 Overweight; D64.9 Anemia, unspecified; Z87.891 Personal history of nicotine dependence
CPT/HCPCS: 36430; 71010; 71260; 74177; 80048; 80053; 80076; 81001; 82150; 82330; 82550; 82552; 82805; 82810; 82948; 82977; 83036; 83690; 83735; 84100; 84484; 85007; 85025; 85027; 85384; 85610; 85730; 86850; 86900; 86901; 86920; 87040; 87070; 87077; 87086; 87186; 87205; 93005; 93306; 93460; 94003; 94640; 94667; 94668; C1769; C1893; J0692; J1815; J1940; J2930; J3480; J7040; J7050; J7608; J7613; P9016; Q9967